=== PATIENT | male | born 1965 | race Two or more races ===

== ENCOUNTER 2018-10-20 14:10 | Outpatient (CLI) | payer BC ==
--- NOTE | 2018-10-20 14:44 | RAD ---
EXAM: Chest PA and lateral: HISTORY: Smoking history COMPARISON: none FINDINGS: Lung lau are clear. Vascular markings are normal. Heart and mediastinum appear unremarkable. Vascularity is normal. Mild degenerative changes in the thoracic spine. Thoracic vertebral maintain height and alignment. IMPRESSION: Unremarkable chest
== END 2018-10-20 14:11 | disposition home or self-care (01) ==
LOC: BICRAD 14:10
PROVIDERS: ATTEND Family Medicine
DX: F17.200 Nicotine dependence, unspecified, uncomplicated (principal)
CPT/HCPCS: 71046